=== PATIENT | male | born 1990 | race Caucasian/White ===

== ENCOUNTER 2021-05-18 22:38 | Emergency (ER) | payer OTHER ==
[~2021-05-18] VITALS: Ht 177.8 cm; Wt 70.0 kg
[2021-05-18] MEDS ORDERED: ONDANSETRON HCL 4 MG/2 ML VIAL IVP ONE (23:45)
[2021-05-18] MEDS ORDERED: HydrOXYzine PAMOATE 50 MG CAPSULE PO ONE (23:45)
[2021-05-18] MEDS ORDERED: ACETAMINOPHEN 500 MG TABLET PO ONE (23:45)
[2021-05-19] MEDS ORDERED: ONDANSETRON HCL 4 MG TABLET PO ONE
[2021-05-19 00:44] VITALS: BP 118/72
== END 2021-05-19 00:44 | disposition home or self-care (01) ==
LOC: EMS 22:40
DX: F11.23 Opioid dependence with withdrawal (principal); F41.9 Anxiety disorder, unspecified; F15.90 Other stimulant use, unspecified, uncomplicated; F17.210 Nicotine dependence, cigarettes, uncomplicated
CPT/HCPCS: 99284; Q0162